=== PATIENT | female | born 2000 | race Caucasian/White ===

== ENCOUNTER 2022-07-10 23:59 | Emergency (ER) | payer BC, OTHER ==
[2022-07-11 00:07] VITALS: BP 104/80; PULSE 94
[2022-07-11] MEDS: diphenhydrAMINE 25 MG Cap PO ONE (00:09)
[2022-07-11] MEDS: Dexamethasone 4 MG/ML SDV PO ONE (00:09)
== END 2022-07-11 00:29 | disposition home or self-care (01) ==
LOC: CC.ED 23:59
DX: L50.0 Allergic urticaria (principal)
CPT/HCPCS: 99283; A9270-GY; J8540